=== PATIENT | male | born 1965 | race Caucasian/White ===

== ENCOUNTER 2017-03-02 18:58 | Emergency (ER) | payer SELFPAY ==
[~2017-03-02 18:58] MED LIST: EPINEPHrine SYR 0.1 MG/ML* (1:10,000) SYRINGE ONE
--- NOTE | 2017-03-02 22:49 | ED ---
Boy Cardenas Benjamin, scribed for Suresh Carpenter MD on 03/02/17 at 1945 . Cardiac Resuscitation - HPI Summary HPI Summary: 51yo male BIB EMS for an unwitnessed sudden cardiac arrest. Pt was later found by bystanders, and CPR was placed by fire department EMS upon arrival. Pt was in V-fib when found, and had been shocked 6 times by the EMS en route. Unknown - History of Current Complaint Chief Complaint: EDCardiacArrest Stated Complaint: CARDIAC ARREST Time Seen by Provider: 03/02/17 19:05 Hx Obtained From: EMS Hx From Patient Unobtainable Due To: Extremis - unresponsive Onset/Duration: Unknown Down-time Before Basic Life Support Initiated: Unknown Down-time Before Advanced Life Support Initiated: Unknown - Prehospital Findings Airway: Gag Reflex Absent Breathing: Apnea Circulation/Rhythm: Asystole, VFib Disability/Neurologic: Unresponsive - Prehospital Intervention Breathing: Other: - conbitube Circulation/Rhythm: Chest Compressions, Defibrillation:, Epinephrine: - amiodorone, bicarb - Prehospital Response Circulation/Rhythm: Asystole, VFib - Past Medical History Past Medical History: Unobtainable Due to Extremis - Family History Family History: Unobtainable Due to Extremis - Social History Social History: Unobtainable Due to Extremis - Review of Systems Review of Systems: Unobtainable Due to Extremis Physical Examination - Physical Examination Completion Of Physical Exam Limited Due To: Extremis - ED Findings Airway: Gag Reflex Absent Breathing: Apnea Circulation/Rhythm: Asystole, Spontaneous Pulses Absent Disability/Neurological: Unresponsive - ED Intervention Airway: Other: - conbi tube in place Breathing: Oxygen-Bag - bagging Circulation/Rhythm: Chest Compressions, Epinephrine: - ED Response Airway: Gag Reflex Absent Breathing: Equal Breath Sounds - with bagging Circulation/Rhythm: Asystole - Glascow Coma Score Eye Openin - None Motor: 1 - None Verbal: 1 - None Coma Scale Total: 3 Diagnostics - Vital Signs Vital Signs Temp Pulse Resp BP Pulse Ox 03/02/17 19:03 96.9 F 0 0 0/0 95 - Laboratory Lab Statement: Any lab studies that have been ordered have been reviewed, and results considered in the medical decision making process. Cardiac Resus. 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 First responders had a recommendation for shock with AED and he got 6 shocks. It is unclear if CPR was being performed at that time. The EMS crew found him in V-Fib, shocked him an additional 3 times gave 6 epi's and called in. I recommended amiodarone and bicarb. On arrival here he was in asystole and had been down for a known 50 minutes. He received 3 more rounds of epi and excellent CPR here with no response at all and was pronounced at 1905. He had a combitube in place and had good breath sounds with bagging. - Diagnoses Provider Diagnoses: Cardiopulmonary arrest - Provider Notifications Discussed Care Of Patient With: Dr. Lira (medical sales specialist) @1930 - Critical Care Time Critical Care Time: 30-74 min - 30 min Discharge - Discharge Plan Condition: Disposition: Referrals: Non Staff,Doctor [Primary Care Provider] - The documentation as recorded by the Boy skinner Benjamin accurately reflects the service I personally performed and the decisions made by me, Suresh Carpenter MD.
== END 2017-03-02 20:00 | disposition expired ==
LOC: ED 18:58
DX: I46.9 Cardiac arrest, cause unspecified (principal)
CPT/HCPCS: 92950; 99285; J0171